=== PATIENT | male | born 1945 | race Caucasian/White ===

== ENCOUNTER 2022-07-12 12:38 | Emergency (ER) | payer MEDICARE ==
[2022-07-12] MEDS ORDERED: Cephalexin 250 MG CAP ONE (13:05)
[2022-07-12] MEDS ORDERED: Sulfameth/Trimethoprim DS 800-160mg TAB ONE (13:05)
== END 2022-07-12 13:10 | disposition home or self-care (01) ==
LOC: BURERS 12:38
DX: T81.49XA Infection following a procedure, other surgical site, initial encounter (principal); I10 Essential (primary) hypertension; E11.9 Type 2 diabetes mellitus without complications
CPT/HCPCS: 99283